=== PATIENT | male | born 1945 | race Caucasian/White ===

== ENCOUNTER 2016-09-05 07:34 | Inpatient (IN) | payer MEDICARE, OTHER ==
[~2016-09-05 07:34] MED LIST: ABACAVIR300 M1; ADVAIR 1001 DISK W/D; ADVAIR 50028 BLISTE1 PO; ALBUTEROL17 GM; ALBUTEROL2.5 MG/3 M INH; ASPIR 8181 M1 PO; ATIVAN0.5 M1 PO; AUGMENTIN 875-1 EAC2 PO; BYSTOLIC2.5 M1 PO; CARDIZEM CD180 M1 PO; CLEOCIN HCL300 M1 PO; ELIQUIS5 M1 PO; LEVAQUIN750 M1 PO; MIRALAX17 G2 PO; MUCINEX1200 MG PO; MULTIVITAMINS1 EAC6 PO; MULTIVITAMINS1 EAC7 PO; OXYGEN; PREDNISONE10 M1 PO; PROAIR HFA8.5 GM INH; SPIRIVA18 MC1 INH; SPIRIVA18 MCG; SUPERBETA PROSTATE PO; XANAX0.25 M1 PO
[2016-09-05] MEDS ORDERED: PROBIOTIC1 EA10 PO (07:52)
[2016-09-05 08:14] LABS: ABG CO2 ARTERIAL 26 mmol/L (21-27); ARTERIAL BLD GAS O2 SATURATION 93 % (95-98); ARTERIAL BLOOD GAS PCO2 37 mmHg (32-45); ARTERIAL PO2 61 mmHg (70-100); BICARBONATE 25 mmol/L (21-28); BLOOD GAS BASE EXCESS 2 mM/L (-/+3); PH 7.44 Units (7.35-7.45)
[2016-09-05 08:54] LABS: EOS % 0.4 % (0-7); EOSINOPHIL ABSOLUTE COUNT 0.1 tho/cmm (0.0-0.7); HCT-HEMATOCRIT 43.8 % (36.0-53.5); HGB-HEMOGLOBIN 13.9 gm/dl (13.5-17.0); IMMATURE GRANULOCYTES ABSOLUTE 0.05 tho/cmm (0-0.03); IMMATURE GRANULOCYTES PERCENT 0.4 % (0-0.3); LYMPH % 26.1 % (20-45); MCH (MEAN CORPUSCULAR HGB) 28.6 pg (28.0-32.0); MCHC MEAN CORPUSCULAR HGB CONC 31.7 % (32.0-36.0); MCV (MEAN CELL VOLUME) 90.1 fl (82.0-96.0); MEAN PLATELET VOLUME 9.3 cmc (9.4-12.4); MONO % 1.9 % (0-12); MONOCYTE ABSOLUTE COUNT 0.2 tho/cmm (0.0-1.2); NEUTROPHIL ABSOLUTE COUNT 8.3 tho/cmm (1.6-8.0); NEUTROPHIL-AUTOMATED 8.3 tho/cmm (1.6-8.0); NEUTROPHILS % 71.2 % (40-80); PLATELET COUNT 222 tho/cmm (150-450); RED BLOOD COUNT 4.86 mil/cmm (4.40-5.70); WHITE BLOOD COUNT 11.6 tho/cmm (4.0-10.0)
[2016-09-05 09:01] LABS: INR 1.1 INR (0.9-1.1); PROTHROMBIN TIME 12.2 SECONDS (9.0-13.6)
[2016-09-05 09:14] LABS: ALB/GLOB RATIO 0.9 (0.8-2.0); ALKALINE PHOSPHATASE 73 U/L (33-138); ALT/SGPT 28 U/L (12-78); ANION GAP 13 mmol/L (0-20); AST/SGOT 16 U/L (10-40); BILIRUBIN,TOTAL 0.4 mg/dl (0.0-1.5); BLOOD UREA NITROGEN 18 mg/dl (6-24); CALCIUM 8.7 mg/dl (8.5-10.5); CARBON DIOXIDE-VENOUS 27 mmol/L (22-32); CHLORIDE 104 mmol/l (96-110); CREATININE 0.93 mg/dl (0.60-1.30); GLUCOSE 89 mg/dL (70-110); POTASSIUM 3.9 mmol/L (3.7-5.1); SODIUM 140 mmol/L (135-145); eGFR VALUE FOR BLACK >90 mL/Min
[2016-09-05 13:13] LABS: PROCALCITONIN 2.14 ng/ml (0.05-0.09)
[2016-09-06 03:05] LABS: URINE APPEARANCE CLEAR; URINE BILIRUBIN NEGATIVE (NEG); URINE COLOR PALE YELLOW; URINE GLUCOSE (UA) NEGATIVE (NEG); URINE LEUKOCYTE ESTERASE NEGATIVE (NEG); URINE PROTEIN NEGATIVE (NEG)
[2016-09-06 03:06] LABS: URINE BLOOD NEGATIVE (NEG); URINE KETONE NEGATIVE (NEG); URINE NITRITE NEGATIVE (NEG)
[2016-09-06 03:07] LABS: URINE EPITHELIAL CELLS RARE /[HPF] (0-10); URINE RBC 0 /[HPF] (0-5); URINE WBC 0 /[HPF] (0-5)
[2016-09-06 03:27] LABS: HCT-HEMATOCRIT 32.7 % (36.0-53.5); HGB-HEMOGLOBIN 10.3 gm/dl (13.5-17.0); IMMATURE GRANULOCYTES ABSOLUTE 0.08 tho/cmm (0-0.03); IMMATURE GRANULOCYTES PERCENT 0.5 % (0-0.3); LYMPH ABSOLUTE COUNT 0.8 tho/cmm (0.8-4.5); MCH (MEAN CORPUSCULAR HGB) 27.8 pg (28.0-32.0); MCHC MEAN CORPUSCULAR HGB CONC 31.5 % (32.0-36.0); MCV (MEAN CELL VOLUME) 88.4 fl (82.0-96.0); MEAN PLATELET VOLUME 8.9 cmc (9.4-12.4); MONO % 2.3 % (0-12); MONOCYTE ABSOLUTE COUNT 0.4 tho/cmm (0.0-1.2); NEUTROPHIL ABSOLUTE COUNT 14.5 tho/cmm (1.6-8.0); NEUTROPHIL-AUTOMATED 14.5 tho/cmm (1.6-8.0); NEUTROPHILS % 92.2 % (40-80); PLATELET COUNT 181 tho/cmm (150-450); RED CELL DISTRIBUTION WIDTH 17.2 % (12.4-16.4); WHITE BLOOD COUNT 15.7 tho/cmm (4.0-10.0)
[2016-09-06 03:39] LABS: ANION GAP 14 mmol/L (0-20); BLOOD UREA NITROGEN 12 mg/dl (6-24); CALCIUM 8.3 mg/dl (8.5-10.5); CARBON DIOXIDE-VENOUS 25 mmol/L (22-32); CHLORIDE 106 mmol/l (96-110); GLUCOSE 125 mg/dL (70-110); MAGNESIUM 1.9 mg/dl (1.8-2.6); POTASSIUM 3.8 mmol/L (3.7-5.1); SODIUM 141 mmol/L (135-145); eGFR VALUE FOR BLACK >90 mL/Min
[2016-09-08 06:14] LABS: HCT-HEMATOCRIT 28.4 % (36.0-53.5); HGB-HEMOGLOBIN 9.1 gm/dl (13.5-17.0); IMMATURE GRANULOCYTES ABSOLUTE 0.03 tho/cmm (0-0.03); IMMATURE GRANULOCYTES PERCENT 0.3 % (0-0.3); LYMPH % 6.9 % (20-45); LYMPH ABSOLUTE COUNT 0.8 tho/cmm (0.8-4.5); MCH (MEAN CORPUSCULAR HGB) 27.9 pg (28.0-32.0); MCV (MEAN CELL VOLUME) 87.1 fl (82.0-96.0); MEAN PLATELET VOLUME 9.1 cmc (9.4-12.4); MONOCYTE ABSOLUTE COUNT 0.6 tho/cmm (0.0-1.2); NEUTROPHIL ABSOLUTE COUNT 9.6 tho/cmm (1.6-8.0); NEUTROPHIL-AUTOMATED 9.6 tho/cmm (1.6-8.0); NEUTROPHILS % 87.8 % (40-80); PLATELET COUNT 178 tho/cmm (150-450); RED BLOOD COUNT 3.26 mil/cmm (4.40-5.70); RED CELL DISTRIBUTION WIDTH 17.2 % (12.4-16.4)
[2016-09-08 06:17] LABS: ANION GAP 14 mmol/L (0-20); BLOOD UREA NITROGEN 12 mg/dl (6-24); CALCIUM 7.6 mg/dl (8.5-10.5); CARBON DIOXIDE-VENOUS 23 mmol/L (22-32); CHLORIDE 102 mmol/l (96-110); GLUCOSE 254 mg/dL (70-110); POTASSIUM 3.2 mmol/L (3.7-5.1); SODIUM 136 mmol/L (135-145); eGFR VALUE FOR BLACK >90 mL/Min
--- NOTE | 2016-09-08 08:39 | NUR ---
AMIODARONE DRIP TURNED OFF AT 0830
[2016-09-09 03:46] LABS: ANION GAP 11 mmol/L (0-20); BLOOD UREA NITROGEN 12 mg/dl (6-24); CALCIUM 8.2 mg/dl (8.5-10.5); CARBON DIOXIDE-VENOUS 26 mmol/L (22-32); CHLORIDE 108 mmol/l (96-110); CREATININE 0.67 mg/dl (0.60-1.30); POTASSIUM 3.8 mmol/L (3.7-5.1); SODIUM 141 mmol/L (135-145); eGFR VALUE FOR BLACK >90 mL/Min
[2016-09-09 03:58] LABS: GLUCOSE 88 mg/dL (70-110)
[2016-09-09 04:00] LABS: HCT-HEMATOCRIT 31.8 % (36.0-53.5); HGB-HEMOGLOBIN 10.1 gm/dl (13.5-17.0); IMMATURE GRANULOCYTES ABSOLUTE 0.02 tho/cmm (0-0.03); IMMATURE GRANULOCYTES PERCENT 0.2 % (0-0.3); LYMPH % 10.8 % (20-45); LYMPH ABSOLUTE COUNT 1.3 tho/cmm (0.8-4.5); MCH (MEAN CORPUSCULAR HGB) 27.7 pg (28.0-32.0); MCHC MEAN CORPUSCULAR HGB CONC 31.8 % (32.0-36.0); MCV (MEAN CELL VOLUME) 87.4 fl (82.0-96.0); MEAN PLATELET VOLUME 9.1 cmc (9.4-12.4); MONO % 4.7 % (0-12); MONOCYTE ABSOLUTE COUNT 0.6 tho/cmm (0.0-1.2); NEUTROPHILS % 84.3 % (40-80); PLATELET COUNT 216 tho/cmm (150-450); RED BLOOD COUNT 3.64 mil/cmm (4.40-5.70); RED CELL DISTRIBUTION WIDTH 16.9 % (12.4-16.4); WHITE BLOOD COUNT 11.9 tho/cmm (4.0-10.0)
[2016-09-09] MEDS ORDERED: ATIVAN0.5 M1 PO ×2 (13:16→13:29)
[2016-09-09] MEDS ORDERED: AMIODARONE HCL200 M1 PO (13:18)
[2016-09-09] MEDS ORDERED: PREDNISONE10 M1 PO (13:18)
[2016-09-09] MEDS ORDERED: PROTONIX40 M2 PO (13:19)
[2016-09-09] MEDS ORDERED: LEVAQUIN750 M1 PO (13:19)
[2016-09-09] MEDS ORDERED: BROVANA15 MCG/22 NEB (13:20)
[2016-09-09] MEDS ORDERED: DALIRESP500 MC1 PO (13:21)
[2016-09-09] MEDS ORDERED: ROXICODONE5 M2 PO (13:21)
[2016-09-09] MEDS ORDERED: PULMICORT0.5 MG/22 NEB (13:22)
[2016-09-09] MEDS ORDERED: COLACE100 M1 PO (13:22)
[2016-09-09] MEDS ORDERED: FLOMAX0.4 M1 PO (13:26)
--- NOTE | 2016-09-09 14:12 | NUR ---
pt signed DNR/DNI form with present. Copies faxed to [facility], Dr Conway and Otoniel. Copy to [facility] and pt, copy in chart.
== END 2016-09-09 14:55 | disposition home health service (06) | DRG 871 ==
LOC: EDMED 07:34 → EMR2 10:04 → CCU 11:02 → PCUA 18:59
PROVIDERS: Emergency Medicine; Internal Medicine; ADMIT Family Medicine
PROC: 02HV33Z Insertion of Infusion Device into Superior Vena Cava, Percutaneous Approach (ICD-10-PCS; principal; 2016-09-05)
DX: A41.9 Sepsis, unspecified organism (principal); J18.9 Pneumonia, unspecified organism; J96.21 Acute and chronic respiratory failure with hypoxia; R65.21 Severe sepsis with septic shock; E46 Unspecified protein-calorie malnutrition; R64 Cachexia; I48.0 Paroxysmal atrial fibrillation; R54 Age-related physical debility; J44.1 Chronic obstructive pulmonary disease with (acute) exacerbation; J44.0 Chronic obstructive pulmonary disease with (acute) lower respiratory infection; E87.6 Hypokalemia; D64.9 Anemia, unspecified; Z88.2 Allergy status to sulfonamides; Z88.1 Allergy status to other antibiotic agents; Z88.7 Allergy status to serum and vaccine; Y95 Nosocomial condition; Z85.828 Personal history of other malignant neoplasm of skin; Z79.01 Long term (current) use of anticoagulants; F41.9 Anxiety disorder, unspecified; Z87.891 Personal history of nicotine dependence; Z79.82 Long term (current) use of aspirin; Z66 Do not resuscitate; Z68.31 Body mass index [BMI] 31.0-31.9, adult; N32.89 Other specified disorders of bladder
CPT/HCPCS: C1751; J0282; J1160; J1956; J2543; J2930; J3370; J7030; J7040; P9045